=== PATIENT | female | born 1940 | race African-American/Black ===

== ENCOUNTER 2018-02-24 17:46 | Emergency (ER) | payer SELFPAY ==
[~2018-02-24] VITALS: Ht 160 cm; Wt 81.0 kg
[2018-02-24 17:49] VITALS: BP 158/75
[2018-02-24] MEDS ORDERED: ACETAMINOPHEN 325MG TABLET PO ONE (18:30)
== END 2018-02-24 21:24 | disposition home or self-care (01) ==
LOC: ER 18:49
DX: S00.03XA Contusion of scalp, initial encounter (principal); I10 Essential (primary) hypertension; Z90.710 Acquired absence of both cervix and uterus; X58.XXXA Exposure to other specified factors, initial encounter; Y93.89 Activity, other specified; Y92.89 Other specified places as the place of occurrence of the external cause; Y99.8 Other external cause status
CPT/HCPCS: 99284